=== PATIENT | male | born 1955 | race Two or more races ===

== ENCOUNTER 2017-04-25 23:26 | Emergency (ER) | payer MEDICARE, OTHER ==
[~2017-04-25] VITALS: Ht 162.6 cm; Wt 72.6 kg
[~2017-04-25 23:26] MED LIST: ALFU10TA10 PO; ASPI-1169 PO; ATOR20TA PO; ENAL2.5T PO; FURO-144 PO; GLIM4TAB2 PO; METF10002 PO; METO-356 PO
--- NOTE | 2017-04-25 23:36 | NUR ---
STACY [id number] FROM HOME WITH C/C OF RIGHT NECK PAIN RADIATING TO RIGHT SHOULDER. PT ALSO C/O SLIGHT SOB DUE TO MISSING MORNING DOSE OF LASIX. PT AMBULATORY WITH STEADY GAIT. SKIN PINK AND WARM TO TOUCH. VSS AND NO S/S OF ACUTE DISTRESS. PT ON CONTINOUS MONITOR WITH PULSE OX. AAOX4. RESPIRATION EVEN AND UNLABORED. AWAITING MD GARCIA.
--- NOTE | 2017-04-25 23:51 | NUR ---
EMT BEDSIDE FOR EKG
[2017-04-25] MEDS ORDERED: DEXAMETHASONE SOD PHOSPHATE 10 MG/ML VIAL ONE (23:56)
[2017-04-25] MEDS ORDERED: CARISOPRODOL 350 MG TABLET ONE (23:56)
[2017-04-25] MEDS ORDERED: HYDROMORPHONE 1 MG/1 ML DISP.SYRIN ONE (23:57)
[2017-04-25] MEDS ORDERED: FUROSEMIDE 40 MG TABLET ONE (23:57)
[2017-04-26] MEDS ORDERED: CARISOPRODOL 350 MG TABLET PO ONE
[2017-04-26] MEDS ORDERED: FUROSEMIDE 40 MG TABLET PO ONE
[2017-04-26] MEDS ORDERED: DEXAMETHASONE SOD PHOSPHATE 4 MG/ML VIAL IM ONE
[2017-04-26] MEDS ORDERED: HYDROMORPHONE 1 MG/1 ML DISP.SYRIN IM ONE
[2017-04-26 00:33] VITALS: BP 142/78
== END 2017-04-26 00:34 | disposition home or self-care (01) ==
LOC: ER 23:27
DX: M54.12 Radiculopathy, cervical region (principal); M62.838 Other muscle spasm; E11.9 Type 2 diabetes mellitus without complications; F17.200 Nicotine dependence, unspecified, uncomplicated; I10 Essential (primary) hypertension; Z79.82 Long term (current) use of aspirin; Z95.0 Presence of cardiac pacemaker
CPT/HCPCS: A4606; J1100; J1170; Z7610

== ENCOUNTER 2020-04-05 09:22 | Inpatient (IN) | payer MEDICARE, OTHER ==
[~2020-04-05] VITALS: Ht 165.1 cm; Wt 81.2 kg
[~2020-04-05 09:22] MED LIST changes: -ENAL2.5T PO; +ENAL2.5T17 PO; -GLIM4TAB2 PO; +GLIM4TAB37 PO; +METF-442 PO; -METF10002 PO; -METO-356 PO; +METO25TA4 PO
--- NOTE | 2020-04-05 09:45 | NUR ---
BIBA RA 102 from Home "Cough/SOB/Low grade temp. AF rate 127 BS-304 On Home O2 at 3L- 88 RA sats 70's. o2 still at 88% on 6l nc. placed on simple mask at 10l.. vs checked. hooked on monitor. seen by md, iv access started blood draw done. sent to lab
--- NOTE | 2020-04-05 09:50 | NUR ---
pt noted with a cadd pump upon arrival, with a picc line on r upper arm, also noted that pt has an infusion going for milrinone. dr. myrick made aware.
--- NOTE | 2020-04-05 10:00 | NUR ---
pt noted to be hypotensive upon arrival, pt stated 'my bp has been low thats why my dice table operator gave me this medication for my heart.' pt pointed to the milnirone infusion running through his picc line. dr myrick made aware.
[2020-04-05 10:19] LABS: BASOPHILS # (AUTO) 0.1 /CMM (0.0-0.2); BASOPHILS % (AUTO) 0.6 % (0.0-2.0); EOSINOPHILS % (AUTO) 1.9 % (0.0-6.0); HEMATOCRIT 34 % (39-51); HEMOGLOBIN 10.9 g/dL (13.5-17.5); LYMPHOCYTES # (AUTO) 1.2 /CMM (0.8-4.8); LYMPHOCYTES % (AUTO) 8.7 % (20.0-44.0); MEAN CORPUSCULAR HGB CONC 33 g/dl (31.0-36.0); MEAN CORPUSCULAR VOLUME 81 fL (80-96); MONOCYTES # (AUTO) 0.9 /CMM (0.1-1.30); MONOCYTES % (AUTO) 6.7 % (2.0-12.0); NEUTROPHILS # (AUTO) 11.2 /CMM (1.8-8.9); NEUTROPHILS % (AUTO) 82.1 % (43.0-81.0); PLATELET COUNT (AUTO) 303 /CMM (150-450); RED BLOOD CELL COUNT(AUTO) 4.14 MIL/uL (4.5-6.0); WHITE BLOOD COUNT (AUTO) 13.6 K/uL (4.3-11.0)
--- NOTE | 2020-04-05 10:24 | NUR ---
rapid influenza and pcr done sent to lab
[2020-04-05 10:34] LABS: CALCIUM, SERUM 9.3 mg/dL (8.5-10.1); CARBON DIOXIDE 26 mmol/L (21-32); CHLORIDE 96 mmol/L (98-107); CREATININE 1.7 mg/dL (0.6-1.3); GLUCOSE 269 mg/dL (74-106); POTASSIUM 4.5 mmol/L (3.5-5.1); SODIUM SERUM 134 mmol/L (136-145); UREA NITROGEN, BLOOD 23 mg/dL (7-18)
--- NOTE | 2020-04-05 10:37 | NUR ---
urine collected sent to lab
[2020-04-05 10:46] LABS: ALANINE AMINOTRANSFERASE 20 U/L (12-78); ALBUMIN 3.5 g/dL (3.4-5.0); ALKALINE PHOSPHATASE 60 U/L (46-116); ASPARTATE AMINOTRANSFERASE 19 U/L (15-37); B-TYPE NATRIURETIC PEPTIDE 3780 PG/ML (0-125); TOTAL PROTEIN, SERUM 8.3 g/dL (6.4-8.2)
[2020-04-05 10:58] LABS: BILIRUBIN,TOTAL 0.9 mg/dL (0.2-1.0)
[2020-04-05] MEDS ORDERED: IV NS 0.9% 500 ML IV PRN (11:30)
[2020-04-05 11:31] LABS: BILIRUBIN,URINE NEGATIVE (NEGATIVE); COLOR,URINE YELLOW (YELLOW); LEUKOCYTE ESTERASE ,URINE NEGATIVE (NEGATIVE); NITRITE, URINE NEGATIVE (NEGATIVE); PROTEIN,URINE NEGATIVE (NEGATIVE); UGLUCOSE NEGATIVE (NEGATIVE); UROBILINOGEN,URINE 0.2 EU/dL (0.2)
[2020-04-05 11:55] LABS: BACTERIA,URINE Rare /HPF (None Seen); RBC,URINE 0-2 /HPF (0-2); WBC,URINE 0-2 /HPF (0-3)
[2020-04-05 11:56] LABS: SQUAMOUS EPITHELIAL CELL,UR Rare /HPF (None Seen)
[2020-04-05 12:15] LABS: BILIRUBIN,DIRECT 0.2 mg/dL (0.0-0.2)
[2020-04-05] MEDS ORDERED: DEXAMETHASONE SOD PHOSPHATE 10 MG/ML VIAL ONE (12:18)
[2020-04-05] MEDS: APIXABAN 2.5 MG TABLET PO SCH ×2 (12:23→17:56)
[2020-04-05] MEDS: DEXAMETHASONE SOD PHOSPHATE 10 MG/ML VIAL IV SCH (12:23)
--- NOTE | 2020-04-05 15:09 | NUR ---
Note ryder in EDM - 04/05/20 at 1527 by BRANDONOS pt noted with increasing sob desatting to mid 80s, on simple mask at 10L. pt was placed on nrb at 15L. satting at 92. but stilll complaining of sob.
--- NOTE | 2020-04-05 15:09 | NUR ---
pt noted with increasing sob desatting to mid 80s, on simple mask at 10L. pt was placed on nrb at 15L. satting at 92. but stilll complaining of sob. stat abgs ordered rt called
[2020-04-05 15:32] LABS: ABG BASE EXCESS -1.1 mmol/L; ABG PCO2 31.3 mmHg (35.0-45.0); ABG PH 7.463 (7.350-7.450); ABG PO2 65.8 mmHg (75.0-100.0); AaDO2 615.9 mmHg; COHb 1.1 % (0.5-1.5); MetHb 0.3 % (0.0-1.5); O2Hb 90.7 % (94.0-97.0); SITE, ABG Left Radial; VENT MODE, BG NRB 100%
--- NOTE | 2020-04-05 15:41 | NUR ---
relayed abg results to dr mcgraw, per dr mcgraw, start on hi flow o2, rt called, now by bedside.
--- NOTE | 2020-04-05 15:45 | NUR ---
placed on hi flow o2 60L/100%
[2020-04-05] MEDS ORDERED: MAGNESIUM HYDROXIDE 30 ML UDC PO PRN (16:00)
[2020-04-05] MEDS ORDERED: MAG HYDROX/AL HYDROX/SIMETH 30 ML UDC PO PRN (16:00)
[2020-04-05] MEDS ORDERED: Z GUARD REMEDY 2 OZ OINT TP PRN (16:00)
[2020-04-05] MEDS ORDERED: ZOLPIDEM TARTRATE 5 MG TABLET PO PRN (16:00)
[2020-04-05] MEDS ORDERED: ENOXAPARIN SODIUM 30 MG/0.3 ML DISP.SYRIN SQ SCH (16:00)
[2020-04-05] MEDS ORDERED: HYDROCODONE/APAP 5/325MG TABLET PO PRN (16:00)
[2020-04-05] MEDS ORDERED: ONDANSETRON HCL/PF 4 MG/2 ML VIAL IVP PRN (16:00)
--- NOTE | 2020-04-05 16:30 | NUR ---
per neal negron, dr mcgraw called her and that they wanted to transfer pt out to [facility] of hloc d/t pts heeart failure. covid antigen ordered.
--- NOTE | 2020-04-05 16:45 | NUR ---
covid antigen swab collected sent to lab
[2020-04-05] MEDS: FUROSEMIDE 40 MG/4 ML VIAL IV SCH ×2 (17:00→21:20)
[2020-04-05] MEDS: CEFEPIME 2 GM in IV D5W 100 ML IV SCH (17:45)
--- NOTE | 2020-04-05 17:50 | NUR ---
lasix 40mg ivpush held. pt is hypotensive. /
[2020-04-05] MEDS: GLIMEPIRIDE 4 MG TABLET PO SCH (17:56)
[2020-04-05 18:05] LABS: ABG BASE EXCESS 0.1 mmol/L; ABG OXYGEN SATURATION 96.6 % (92.0-98.5); ABG PCO2 35.8 mmHg (35.0-45.0); ABG PH 7.442 (7.350-7.450); ABG PO2 95.8 mmHg (75.0-100.0); AaDO2 581.4 mmHg; COHb 0.5 % (0.5-1.5); MetHb 0.4 % (0.0-1.5); O2Hb 95.7 % (94.0-97.0); SITE, ABG Right Radial; VENT MODE, BG HFNC 60L 100%
[2020-04-05] MEDS ORDERED: VANCOMYCIN 1 GM in IV D5W 250ml IV ONE (19:00)
--- NOTE | 2020-04-05 19:30 | NUR ---
REC'D PT IN BED, ON HIGHFLOW O2. SAT ABOVE 92%, PT HERE FOR SOB D/T CHF. PT ON CONT INFUSION THROUGH PICC LINE. PT PENDING XFER FOR HIGHER LVL OF CARE PER CARDS. PT AAOX4, TACHYPNIC, ABLE TO SPEAK IN FULL SENTENCES. PT ABLE TO MAKE NEEDS KNOWN. 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 PT VS UPDATED. WCTM
[2020-04-05] MEDS ORDERED: VANCOMYCIN 500 MG in IV D5W 100ml IV ONE (20:00)
[2020-04-05] MEDS ORDERED: FUROSEMIDE 40 MG/4 ML VIAL ONE (20:37)
[2020-04-05] MEDS: ATORVASTATIN 10 MG TABLET PO SCH (21:59)
[2020-04-06] VITALS (16 sets, daily range): BP systolic 80–121; BP diastolic 31–72
--- NOTE | 2020-04-06 04:00 | NUR ---
PT NOTED TO HAVE BP AROUND 80'S SBP. MAP ABOVE >65. WCTM
[2020-04-06] MEDS: CEFEPIME 2 GM in IV D5W 100 ML IV SCH ×2 (05:45→18:02)
[2020-04-06 05:46] LABS: BASOPHILS % (AUTO) 0.2 % (0.0-2.0); HEMATOCRIT 30 % (39-51); HEMOGLOBIN 9.9 g/dL (13.5-17.5); LYMPHOCYTES # (AUTO) 0.6 /CMM (0.8-4.8); LYMPHOCYTES % (AUTO) 5.5 % (20.0-44.0); MEAN CORPUSCULAR HGB CONC 33 g/dl (31.0-36.0); MEAN CORPUSCULAR VOLUME 80 fL (80-96); MONOCYTES # (AUTO) 0.6 /CMM (0.1-1.30); MONOCYTES % (AUTO) 5.6 % (2.0-12.0); NEUTROPHILS # (AUTO) 10.2 /CMM (1.8-8.9); NEUTROPHILS % (AUTO) 88.7 % (43.0-81.0); PLATELET COUNT (AUTO) 293 /CMM (150-450); RED BLOOD CELL COUNT(AUTO) 3.78 MIL/uL (4.5-6.0); WHITE BLOOD COUNT (AUTO) 11.5 K/uL (4.3-11.0)
[2020-04-06 06:01] LABS: CALCIUM, SERUM 9.3 mg/dL (8.5-10.1); CREATININE 1.4 mg/dL (0.6-1.3); PHOSPHORUS 3.3 mg/dL (2.5-4.9); POTASSIUM 4.3 mmol/L (3.5-5.1)
[2020-04-06 06:20] LABS: THYROID STIMULATING HORMONE 0.278 uIU/mL (0.358-3.74)
[2020-04-06] MEDS: DEXAMETHASONE SOD PHOSPHATE 10 MG/ML VIAL IV SCH (08:00)
[2020-04-06 08:45] LABS: IRON, SERUM 29 ug/dl (50-175); TOTAL IRON BINDING CAPACITY 362 ug/dl (250-450)
[2020-04-06 08:59] LABS: FERRITIN 159 ng/mL (8-388)
[2020-04-06] MEDS ORDERED: DEXAMETHASONE SOD PHOSPHATE 4 MG/ML VIAL IV SCH (09:00)
[2020-04-06] MEDS ORDERED: ASPIRIN 81 MG TAB.CHEW ONE (09:19)
[2020-04-06] MEDS ORDERED: DEXAMETHASONE SOD PHOSPHATE 10 MG/ML VIAL ONE (09:19)
[2020-04-06] MEDS ORDERED: FUROSEMIDE 40 MG/4 ML VIAL ONE (09:19)
[2020-04-06] MEDS: GLIMEPIRIDE 4 MG TABLET PO SCH ×2 (09:32→16:52)
[2020-04-06] MEDS: ASPIRIN 81 MG TAB.CHEW PO SCH (09:32)
[2020-04-06] MEDS: FUROSEMIDE 40 MG/4 ML VIAL IV SCH ×4 (09:32→17:48)
[2020-04-06] MEDS: APIXABAN 2.5 MG TABLET PO SCH ×2 (09:32→16:52)
--- NOTE | 2020-04-06 11:19 | NUR ---
report given to Kathryn DIAZ for johnny
--- NOTE | 2020-04-06 11:22 | NUR ---
Wheeled patient via gurney accompanied by RN and emt in no distress. RN at bedside to assume care.
--- NOTE | 2020-04-06 13:20 | NUR ---
PATIENT ADMITTED TO ICU. AAOX4, RESPONDS APPROPRIATELY. SINUS TACHY/AFIB WITH PVCS NOTED ON BEDSIDE MONITOR. ON HIGH FLOW, TOLERATING VENT SETTINGS WELL. PATIENT HAS MILRINONE RUNNING THROUGH PUMP BIB PATIENT VIA HOME HEALTH. SAFETY MEASURES IMPLEMENTED, BED IN LOWEST POSITION, LOCKED, SIDE RAILS UP, CALL LIGHT WITHIN REACH. WILL CONTINUE TO MONITOR PATIENT FOR CHANGES.
[2020-04-06] MEDS: VANCOMYCIN 1 GM in IV D5W 250ml IV SCH (14:28)
--- NOTE | 2020-04-06 17:12 | NUR ---
INITIAL ECHOCARDIOGRAM SHOWED EF 10-15%~. PRELIM RESULTS ADVISED TO RN AND DR GERARDO.
--- NOTE | 2020-04-06 19:41 | NUR ---
DR LYLES AND DR GERARDO BOTH AWARE OF PATIENT'S SBP BEING LOW. DR GERARDO ALSO AWARE OF PATIENT EF 10-15%. ORDERS TO STILL GIVE THE LASIX IVP. BOTH MDS ALSO AWARE OF PATIENT'S MILRINONE FROM HOME HEALTH THAT IS CURRENTLY INFUSING. AT THIS TIME. NNO AT THIS TIME REGARDING PATIENT'S SBP, ENDORSED TO SYED RN FOR CONTINUITY OF CARE.
--- NOTE | 2020-04-06 19:43 | NUR ---
CM SPOKE WITH [facility] FOR PATIENT TRANSFER, ROOM AVAILABLE BUT TRANSPORT WILL NOT TAKE PATIENT UNTIL RESP STATUS IMPROVES AND PATIENT TITRATED DOWN FROM HIGH FLOW.
[2020-04-06] MEDS: ATORVASTATIN 10 MG TABLET PO SCH (22:06)
[2020-04-07] VITALS (26 sets, daily range): BP systolic 57–107; BP diastolic 25–71
[2020-04-07] MEDS: FUROSEMIDE 40 MG/4 ML VIAL IV SCH ×4 (01:00→20:56)
[2020-04-07 04:44] LABS: BASOPHILS % (AUTO) 0.1 % (0.0-2.0); HEMATOCRIT 28 % (39-51); LYMPHOCYTES # (AUTO) 0.5 /CMM (0.8-4.8); LYMPHOCYTES % (AUTO) 4.6 % (20.0-44.0); MEAN CORPUSCULAR HGB CONC 33 g/dl (31.0-36.0); MEAN CORPUSCULAR VOLUME 81 fL (80-96); MONOCYTES # (AUTO) 0.9 /CMM (0.1-1.30); MONOCYTES % (AUTO) 7.2 % (2.0-12.0); NEUTROPHILS # (AUTO) 10.6 /CMM (1.8-8.9); NEUTROPHILS % (AUTO) 88.1 % (43.0-81.0); PLATELET COUNT (AUTO) 295 /CMM (150-450); RED BLOOD CELL COUNT(AUTO) 3.42 MIL/uL (4.5-6.0)
[2020-04-07 05:01] LABS: BILIRUBIN,TOTAL 0.7 mg/dL (0.2-1.0); CALCIUM, SERUM 8.9 mg/dL (8.5-10.1); CREATININE 1.6 mg/dL (0.6-1.3); MAGNESIUM 2.5 mg/dL (1.8-2.4); PHOSPHORUS 4.3 mg/dL (2.5-4.9); POTASSIUM 3.9 mmol/L (3.5-5.1); TOTAL PROTEIN, SERUM 7.5 g/dL (6.4-8.2)
[2020-04-07 05:36] LABS: ABG BASE EXCESS 0.6 mmol/L; ABG PCO2 34.7 mmHg (35.0-45.0); ABG PH 7.461 (7.350-7.450); ABG PO2 64.6 mmHg (75.0-100.0); AaDO2 613.7 mmHg; COHb 0.9 % (0.5-1.5); MetHb 0.4 % (0.0-1.5); O2Hb 90.8 % (94.0-97.0); SITE, ABG Right Radial; VENT MODE, BG HFNC 60L 100%
[2020-04-07] MEDS: CEFEPIME 2 GM in IV D5W 100 ML IV SCH ×2 (06:13→18:00)
--- NOTE | 2020-04-07 07:07 | NUR ---
RN NOTES NO CHANGES NOTED DURING SHIFT, REMAINED ON HIGH FLOW SATING WELL. ST ON TELE MONITOR. IV SITES INTACT FLUSHES WELL. ALL MEDICATION WERE GIVEN TOLERATED WELL, KEPT CLEAN DRY AND COMFORTABLE.NO S/S OF ACUTE DISTRESS NOTED. ALL SAFETY MEASURES IN PLACE, CALL LIGHT WITHIN REACH. ENDORSE TO AM NUSE FOR ANTONY.
[2020-04-07 07:22] LABS: PTH, INTACT 42 pg/mL (15-65)
--- NOTE | 2020-04-07 07:51 | NUR ---
PT RECEIVED ON HIGH FLOW, O2 SATS 95%, MILD SOB. PT IS SCHEDULED FOR TRANSPORT TO [facility]. [facility] CONTACTED, SCHEDULED PICK-UP TIME FOR [phone]. PER GASTON AT [facility], PT CAN BE TRANSPORTED ON HIGH FLOW. PT ALERT AND ORIENTED X4 NO IV DRIPS. ALL SAFETY MEASURES IN PLACE. WILL CONTINUE TO MONITOR CLOSLY
[2020-04-07] MEDS: ASPIRIN 81 MG TAB.CHEW PO SCH (08:21)
[2020-04-07] MEDS: DEXAMETHASONE SOD PHOSPHATE 10 MG/ML VIAL IV SCH (08:21)
[2020-04-07] MEDS: GLIMEPIRIDE 4 MG TABLET PO SCH ×2 (08:22→17:06)
[2020-04-07] MEDS: APIXABAN 2.5 MG TABLET PO SCH ×2 (08:23→17:08)
[2020-04-07] MEDS: VANCOMYCIN 1 GM in IV D5W 250ml IV SCH (09:56)
--- NOTE | 2020-04-07 13:08 | NUR ---
PT TRANSFERRED TO [facility] , UNABLE TO BE TRANSFERRED TO [facility]. PT CURRENTLY ON 30L HIGH FLOW O2, NO RESPIRATORY DISTRESS OR SOB
[2020-04-07 13:11] LABS: *SPE A/G RATIO 0.8 (0.7-1.7); *SPE ALBUMIN 3.1 g/dL (2.9-4.4); *SPE ALPHA-1-GLOBULIN 0.5 g/dL (0.0-0.4); *SPE ALPHA-2-GLOBULIN 1.3 g/dL (0.4-1.0); *SPE BETA GLOBULIN 1.2 g/dL (0.7-1.3); *SPE GLOBULIN, TOTAL 3.9 g/dL (2.2-3.9); *SPE M-SPIKE Not Observed g/dL (Not Observed)
--- NOTE | 2020-04-07 13:11 | NUR ---
RN TRANSFERRING NOTE Patient arrived from ICU. A/O x4, on 60.0 L 100% fiO2 High flow saturating 96%, SOB upon exertion. Patient is able to sit up at the edge of bed. Patient denies any pain or discomfort at this time. Patient has MILIRINONE DRIP running @ 8.8mls/hr for 48 hours. Patient receives this medication through home health, medication was brought by family. New bag of 450 ml MILIRINONE 90mg was brought by family, I gave it to pharmacy. Nw bag to be changed next shift. Bed is in lowest position, side rails x2, in upright position, call light is within reach, fall safety and aspiration precautions enforced. Will continue with plan of care. Addendum: 04/07/20 at 1512 by MARITZA JIMENEZ RN Correction: patient is on 40.0L at 60% fiO2
--- NOTE | 2020-04-07 13:31 | NUR ---
RN NOTE BP IS 73/58 HR 89. HELD LASIX FOR NOW, WILL RE-CHECK BP.
[2020-04-07] MEDS ORDERED: SOD FERRIC GLUC 125 MG in IV NS 0.9% 100 ML IV SCH (14:00)
[2020-04-07] MEDS: ACETAMINOPHEN 325 MG TABLET PO PRN ×2 (14:14→20:53)
--- NOTE | 2020-04-07 14:14 | NUR ---
RN NOTE Per Dr. Salcedo's order, administer lasix once SBP >90. Patient's BP is 80/50. Will recheck.
--- NOTE | 2020-04-07 14:30 | NUR ---
TELE MONITOR V-PACING ST WITH PVCs.
--- NOTE | 2020-04-07 15:12 | NUR ---
RN NOTE Patient's c/o SOB, O2 sat is going down to 88% on 40L high flow Fio2 60%. Respiratory therapist brought up the O2 to 40.0L at 80% fio2. Will continue to monitor. Dr. Salcedo and Dr. Felder made aware. No new orders.
--- NOTE | 2020-04-07 16:25 | NUR ---
TELE MONITOR A-FIB WITH V-PACING HR 130s
--- NOTE | 2020-04-07 16:26 | NUR ---
RN NOTE RT changed O2 to 90% fiO2 40.0L high flow.
[2020-04-07] MEDS ORDERED: D5W IV PRN (18:00)
[2020-04-07] MEDS ORDERED: MILRINONE IV PRN (18:00)
--- NOTE | 2020-04-07 19:30 | NUR ---
RN NOTES Patient received A/O x4, on 40 L 100% fiO2 High flow saturating 96%, SOB upon exertion. Patient is able to sit up at the edge of bed. Patient denies any pain or discomfort at this time. Patient has MILIRINONE DRIP running @ 8.8mls/hr for 48 hours. Patient receives this medication through home health,Bed is in lowest position, side rails x2, in upright position, call light is within reach, fall safety and aspiration precautions enforced. Will continue with plan of care.
[2020-04-07] MEDS: ATORVASTATIN 10 MG TABLET PO SCH (21:01)
[2020-04-08] VITALS: BP 100/50
--- NOTE | 2020-04-08 | NUR ---
RN NOTES HELD LASIX FOR LOW SBP 100/50 WILL CONTINUE TO MONITOR
[2020-04-08] MEDS: VANCOMYCIN 1 GM in IV D5W 250ml IV SCH (02:35)
[2020-04-08] MEDS: ACETAMINOPHEN 325 MG TABLET PO PRN ×2 (03:28→09:34)
[2020-04-08 04:00] VITALS: BP 99/63
[2020-04-08] MEDS: CEFEPIME 2 GM in IV D5W 100 ML IV SCH (05:23)
[2020-04-08] MEDS: FUROSEMIDE 40 MG/4 ML VIAL IV SCH ×2 (05:30)
[2020-04-08 06:29] LABS: ALBUMIN 2.7 g/dL (3.4-5.0); BASOPHILS % (AUTO) 0.2 % (0.0-2.0); BILIRUBIN,TOTAL 0.6 mg/dL (0.2-1.0); CALCIUM, SERUM 8.5 mg/dL (8.5-10.1); CREATININE 1.6 mg/dL (0.6-1.3); HEMATOCRIT 27 % (39-51); HEMOGLOBIN 8.8 g/dL (13.5-17.5); LYMPHOCYTES # (AUTO) 0.7 /CMM (0.8-4.8); MAGNESIUM 2.4 mg/dL (1.8-2.4); MEAN CORPUSCULAR HGB CONC 33 g/dl (31.0-36.0); MEAN CORPUSCULAR VOLUME 82 fL (80-96); MONOCYTES # (AUTO) 0.7 /CMM (0.1-1.30); MONOCYTES % (AUTO) 6.5 % (2.0-12.0); NEUTROPHILS # (AUTO) 8.9 /CMM (1.8-8.9); NEUTROPHILS % (AUTO) 85.3 % (43.0-81.0); PHOSPHORUS 3.5 mg/dL (2.5-4.9); PLATELET COUNT (AUTO) 279 /CMM (150-450); POTASSIUM 3.6 mmol/L (3.5-5.1); RED BLOOD CELL COUNT(AUTO) 3.27 MIL/uL (4.5-6.0); WHITE BLOOD COUNT (AUTO) 10.4 K/uL (4.3-11.0)
--- NOTE | 2020-04-08 07:45 | NUR ---
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 A/O X4, primary language of [place] but able to understand basic [place]. Receiving 40l high flow oxygen, saturating at 95%, will continue to monitor and ensure saturation remains stable. Picc line to right upper arm noted, flushing well with normal saline, no signs of infiltration seen. All questions and concerns addressed, will continue to monitor and ensure safety. Continue to wait for bed at [facility].
[2020-04-08 08:00] VITALS: BP 99/57
[2020-04-08] MEDS: DEXAMETHASONE SOD PHOSPHATE 10 MG/ML VIAL IV SCH (08:15)
[2020-04-08] MEDS: ASPIRIN 81 MG TAB.CHEW PO SCH (08:15)
[2020-04-08] MEDS: GLIMEPIRIDE 4 MG TABLET PO SCH (08:16)
[2020-04-08] MEDS: APIXABAN 2.5 MG TABLET PO SCH (08:17)
--- NOTE | 2020-04-08 09:00 | NUR ---
MS/RN Medications Morning medications administered as ordered.
--- NOTE | 2020-04-08 09:45 | NUR ---
MS/RN Labs Morning labs reviewed: -H&h 8.11/27 -[id number] -Creat 1.6
[2020-04-08] MEDS: POTASSIUM CHLORIDE 20 MEQ TAB.PRT.SR PO SCH ×3 (10:16→10:20)
[2020-04-08] MEDS: BUMETANIDE INJ 16 MG in IV NS 0.9% 16 ML IV ONE ×2 (10:53→11:11)
--- NOTE | 2020-04-08 11:09 | NUR ---
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
[2020-04-08 12:00] VITALS: BP 97/44
[2020-04-08 12:10] LABS: ABG BASE EXCESS 2.7 mmol/L; ABG OXYGEN SATURATION 93.2 % (92.0-98.5); ABG PCO2 39.2 mmHg (35.0-45.0); ABG PH 7.453 (7.350-7.450); ABG PO2 67.6 mmHg (75.0-100.0); AaDO2 606.2 mmHg; COHb 0.7 % (0.5-1.5); MetHb 0.3 % (0.0-1.5); O2Hb 92.3 % (94.0-97.0); SITE, ABG Left Radial
--- NOTE | 2020-04-08 13:21 | NUR ---
MS/RN Report Report called to Kathryn at [facility].
--- NOTE | 2020-04-08 14:32 | NUR ---
MS/supervisor engine repair Patient left facility via ambulance for transfer to [facility]. All personal belongings returned to patient and signed for on belongings list. Tele monitor and name bands removed. Picc line to right upper arm left in place at request of receiving facility; Report given to Kathryn, patient to be going to room 4113.
== END 2020-04-08 14:25 | disposition short-term general hospital (02) | DRG 280 ==
LOC: ER 09:29 → TRANSITION 13:03 → ICU 04-06 09:56 → TELE 04-07 11:58
DX: I13.0 Hypertensive heart and chronic kidney disease with heart failure and stage 1 through stage 4 chronic kidney disease, or unspecified chronic kidney disease (principal); I21.4 Non-ST elevation (NSTEMI) myocardial infarction; J12.9 Viral pneumonia, unspecified; J96.01 Acute respiratory failure with hypoxia; I50.43 Acute on chronic combined systolic (congestive) and diastolic (congestive) heart failure; N17.9 Acute kidney failure, unspecified; E87.1 Hypo-osmolality and hyponatremia; D68.59 Other primary thrombophilia; I42.9 Cardiomyopathy, unspecified; I48.91 Unspecified atrial fibrillation; Z95.1 Presence of aortocoronary bypass graft; E11.65 Type 2 diabetes mellitus with hyperglycemia; I25.10 Atherosclerotic heart disease of native coronary artery without angina pectoris; Z79.82 Long term (current) use of aspirin; Z79.84 Long term (current) use of oral hypoglycemic drugs; Z79.899 Other long term (current) drug therapy; N40.0 Benign prostatic hyperplasia without lower urinary tract symptoms; Z79.01 Long term (current) use of anticoagulants; Z87.891 Personal history of nicotine dependence; Z95.0 Presence of cardiac pacemaker; E11.22 Type 2 diabetes mellitus with diabetic chronic kidney disease; N18.9 Chronic kidney disease, unspecified
CPT/HCPCS: 36415; 36600; 71045-TC; 80048-TC; 80053-TC; 80061-TC; 80202-TC; 81001; 82248-TC; 82550-TC; 82728-TC; 82803-TC; 82962-TC; 83540-TC; 83605-TC; 83735-TC; 83880; 83970; 84100-TC; 84155; 84165; 84443-TC; 84484-TC; 85025-TC; 85378-TC; 85730-TC; 86140-TC; 87040-TC; 87081-TC; 87086-TC; 87186-TC; 93307-TC; 97112-TC; 97116-TC; 97530-TC; G0378; J0692; J1100; J1940; J2916; J3370; J3490; J7030; J7060; U0003